=== PATIENT | female | born 1955 | race Caucasian/White ===

== ENCOUNTER 2017-01-27 15:00 | Inpatient (IN) | payer MEDICARE, OTHER ==
--- NOTE | ~2017-01-27 | PN ---
Unit #: [id number] #: [id number] Patient: JENNIFER CONSTANTINO [id number] [facility] [address] [place] [address] [id number] MR#: [id number] NAME: JENNIFER CONSTANTINO ROOM: P254 Age: 61 Sex: F Admission Date: 01/27/2017 : 1955 Attending Physician: Alexis Watson M.D. Admitting Physician: Alexis Watson M.D. Primary Care Physician: Domingo Doctor Not In System [facility] PROGRESS NOTES DATE 02/01/2017 DISCUSSION The patient is complaining of poor sleep and reports that the Benadryl did not effectively address her symptoms and reports that the patient has multiple medication allergies but we will attempt a trial of belsomra 10 mg this evening. Dictated by... Alexis Watson M.D. CB/theron TD: 02/02/2017 07:23 JOB #: [id number] [facility] PROGRESS NOTES Page 1 of 1 X Alexis Watson MD X PROGRESS NOTE
--- NOTE | ~2017-01-27 | PN ---
Unit #: [id number] #: [id number] Patient: JENNIFER CONSTANTINO [id number] [facility] [address] [place] [address] [id number] I MR#: [id number] NAME: JENNIFER CONSTANTINO ROOM: P254 Age: 61 Sex: F Admission Date: 01/27/2017 : 1955 Attending Physician: Alexis Watson M.D. Admitting Physician: Alexis Watson M.D. Primary Care Physician: Domingo Doctor Not In System [facility] PROGRESS NOTES DATE 01/31/2017 DISCUSSION The patient is compliant with medications. She is complaining that she feels as though the trazodone may be causing her to have manic symptoms. I will discontinue this medication as of today and add Benadryl on p.r.n. basis for sleep. Dictated by... Alexis Watson M.D. CB/renaldo TD: 01/31/2017 16:04 JOB #: [id number] [facility] PROGRESS NOTES Page 1 of 1 X Alexis Watson MD PROGRESS NOTE
--- NOTE | ~2017-01-27 | HP ---
Unit #: [id number] #: [id number] Patient: JENNIFER CONSTANTINO [id number] [place] [address] [id number] I MR#: [id number] NAME: JENNIFER CONSTANTINO. ROOM: P254 Age: 61 Sex: F Admission Date: 01/27/2017 : 1955 Attending Physician: Alexis Watson M.D. Admitting Physician: Alexis Watson M.D. Primary Care Physician: Generic Doctor Not In System HISTORY AND PHYSICAL HISTORY OF PRESENT ILLNESS Jennifer is a 61 year old admitted to [address] [place] [address] with depression. She also reports auditory and olfactory hallucinations. She is a poor historian so her history is taken from her chart. PAST MEDICAL HISTORY 1. Hypercholesterolemia 2. History of migraines. 3. GERD. 4. History of kidney stones. PAST SURGICAL HISTORY Cholecystectomy ALLERGIES Penicillin, sulfa, Restoril, perphenazine, lithium, codeine, Depakote, carbamazepine, pseudoephedrine, Macrodantin, Ambien, Risperdal, amitripyline, sertraline, Zyprexa, Lunesta, Geodon. SOCIAL HISTORY She denies cigarettes, alcohol and illicit drug use. REVIEW OF SYSTEMS She does not answer questions appropriately. There are no reports of nausea, vomiting or diarrhea. She has had no cough or increased temperature. CURRENT MEDICATIONS 1. Fanapt 16 mg q.h.s. 2. Neurontin 900 mg q.h.s. 3. Claritin 10 mg q day 4. Tricor 145 mg q day 5. Desyrel 100 mg q.h.s. p.r.n. 6. Milk of Magnesia p.r.n. 7. Maalox p.r.n. 8. Tylenol p.r.n. 9. Lamictal 200 mg q.h.s. 10. Cogentin 1 mg q.h.s. PHYSICAL EXAMINATION Unit #: [id number] #: [id number] Patient: JENNIFER CONSTANTINO GENERAL: Alert, elderly, in no apparent distress. VITAL SIGNS: Blood pressure 138/72, heart rate 80, respirations 16, temperature 98.6. WEIGHT: 160 pounds. HEIGHT: 5'6". SKIN: Warm and dry without rash or lesion. HEENT: Normocephalic. TMs not viewed. Oral and nasal passages clear. Conjunctivae clear. Pupils equal, round and reactive to light and accommodation. Extraocular movements intact. NECK: Supple without lymphadenopathy or thyromegaly. HEART: Regular rate and rhythm without murmur. LUNGS: Clear. ABDOMEN: Soft, nontender. : Not done. EXTREMITIES: No evidence of cyanosis, clubbing or edema. Moves all extremities without focal deficit. NEUROLOGICAL: Unable to complete extended exam. She does move all extremities without focal deficit. 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 IMPRESSION Psychiatric admission RECOMMENDATIONS PSYCHIATRIC: Per psychiatrist. MEDICAL: I see no contraindications to participating in facility's activities. MEDICAL PROGNOSIS Good. MEDICAL CONDITION Stable. Dictated by... Bernadette Walker P.A.-C. for Brett Rodriguez/tona TD: 01/29/2017 00:52 JOB #: [id number] HISTORY AND PHYSICAL Page 1 of 1 X Bernadette Walker X HISTORY AND PHYSICAL
--- NOTE | ~2017-01-27 | PN ---
Unit #: [id number] #: [id number] Patient: JENNIFER CONSTANTINO [id number] [facility] [address] [place] [address] [id number] I MR#: [id number] NAME: JENNIFER CONSTANTINO ROOM: P254 Age: 61 Sex: F Admission Date: 01/27/2017 : 1955 Attending Physician: Alexis Watson M.D. Admitting Physician: Alexis Watson M.D. Primary Care Physician: Generic Doctor Not In System [facility] PROGRESS NOTES DATE 01/29/2017 DISCUSSION The patient states that she was somewhat groggy for 3 hours this morning after awakening with increased dose of Fanapt but understands why the dose had to be increased. She otherwise seems a bit less pressured and labile during today's interview and is active within the therapeutic milieu. She does hint that there is "something important" with what she must deal once discharged from the hospital but does not divulge. Dictated by... Alexis Watson M.D. CB/renaldo TD: 01/29/2017 17:14 JOB #: [id number] [facility] PROGRESS NOTES Page 1 of 1 X Alexis Watson MD X PROGRESS NOTE
--- NOTE | ~2017-01-27 | PN ---
Unit #: [id number] #: [id number] Patient: JENNIFER CONSTANTINO [id number] [facility] [address] [place] [address] [id number] I MR#: [id number] NAME: JENNIFER CONSTANTINO ROOM: P254 Age: 61 Sex: F Admission Date: 01/27/2017 : 1955 Attending Physician: Alexis Watson M.D. Admitting Physician: Alexis Watson M.D. Primary Care Physician: Domingo Doctor Not In System [facility] PROGRESS NOTES DATE 02/04/2017 DISCUSSION The patient is active within the therapeutic milieu. She was seeming calmer. The patient continues to express grave concerns regarding her safety outside the hospital saying that she is afraid of her "impulsivity." I have spoken with the patient regarding realistic expectations of inpatient care, and I will (1) __ that her progress has been significant since her admission to the hospital. She was tolerating medications, and I would like to see the patient leave the hospital by the weekend with followup to take place in the intensive outpatient program. Dictated by... Alexis Watson M.D. CB/reinier TD: 02/04/2017 12:38 JOB #: [id number] [facility] PROGRESS NOTES Page 1 of 1 X Alexis Watson MD X PROGRESS NOTE
--- NOTE | ~2017-01-27 | PA ---
Unit #: [id number] #: [id number] Patient: JENNIFER CONSTANTINO [id number] [place] [address] [id number] I MR#: [id number] NAME: JENNIFER CONSTANTINO. ROOM: P254 Age: 61 Sex: F Admission Date: 01/27/2017 : 1955 Date of Assessment: 01/28/2017 Attending Physician: Alexis Watson M.D. Admitting Physician: Alexis Watson M.D. Primary Care Physician: Generic Doctor Not In System PSYCHIATRIC ASSESSMENT IDENTIFYING INFORMATION The patient is a 61-year-old single white female, admitted to the [address] [place] [address] unit in a mixed phase of bipolar disorder. INFORMANT(S) Patient, patient reliability is good. CHIEF COMPLAINT None given. HISTORY OF PRESENT ILLNESS The patient is a 61-year-old white female, followed by this physician. She has a history of bipolar disorder and is admitted in what appears to be a mixed phase. The patient states that she has been compliant with prescribed medications. She reports that she has recently had issues with dizziness which was thought to be elated to some visual issues. She has been undergoing visual therapy but reports that this has been an extremely stressful to her. She also reports some difficulty at her work place as causes for her increasing depression and sleeplessness. The patient was admitted yesterday voicing positive suicidal ideation, racing thoughts, and severe paranoia. She was last hospitalized at this facility in 2014 under the care of this physician and has been followed since that time. She has maintained fairly good health and has been compliant with prescribed medications. PAST PSYCHIATRIC HISTORY Is as above. MEDICATIONS 1. Fanapt 2. Gabapentin 3. Lamotrigine 4. Benztropine 5. Fenofibrate 6. Fish oil 7. Aspirin 8. Linzess 9. Ne 10. MiraLAX 11. Omeprazole 12. Culturelle 13. Meloxicam 14. Multivitamins Unit #: [id number] #: [id number] Patient: JENNIFER CONSTANTINO ALLERGIES Penicillin, sulfa, amitriptyline, codeine, carbamazepine, lithium, nitrofurantoin, perphenazine, pseudoephedrine, Risperdal, sertraline, topiramate, cephalexin, Depakote, Lunesta, Zyprexa, Restoril, Ambien, Geodon, Macrobid. FAMILY HISTORY Noncontributory. SOCIAL HISTORY The patient lives alone. 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 She reports substance use as noted. She denies use of alcohol, tobacco, or street drugs. MENTAL STATUS EXAM At this time, reveals the patient to be a well-developed, well-nourished white female, appearing her stated age. She is in no apparent physical distress at the time of the examination. She is awake and alert in all spheres. Her mood is dysphoric. Her affect somewhat labile. Speech is pressured but generally relevant and coherent. There are no gross deficits to memory or cognition noted. Intelligence is judged to be in the average range based on fund of knowledge. The patient is cooperative throughout the interview. She is currently endorsing positive suicidal ideation. She denies homicidal ideation. She does report racing thoughts and some increasing paranoia. Her judgment and insight appear to be somewhat impaired. ASSETS Motivation for change. LIABILITIES Lack of resources. DIAGNOSTIC IMPRESSION Bipolar disorder, mixed phase. TREATMENT PLAN The patient remains hospitalized for safety and stabilization. We will increase the patient's Fanapt from 12 to 16 mg nightly in hopes of addressing her symptoms, cautious upward titration will be undertaken as the patient has shown exquisite sensitivity to extrapyramidal symptoms from other second generation antipsychotics. The patient will participate in appropriate arias and milieu activities with an estimated length of stay in the hospital of [id number] days. She looks to be a good candidate for referral to the intensive outpatient program once discharged. ESTIMATED LENGTH OF STAY Estimated length of stay in the hospital seven days. Dictated by... Alexis Watson M.D. Unit #: [id number] #: [id number] Patient: JENNIFER CONSTANTINO CLARENCE/theron TD: 01/28/2017 12:50 JOB #: [id number] PSYCHIATRIC ASSESSMENT Page 1 of 1 X Alexis Watson MD PSYCHIATRIC ASSESSMENT
--- NOTE | ~2017-01-27 | PN ---
Unit #: [id number] #: [id number] Patient: JENNIFER CONSTANTINO [id number] [facility] [address] [place] [address] [id number] I MR#: [id number] NAME: JENNIFER CONSTANTINO ROOM: P254 Age: 61 Sex: F Admission Date: 01/27/2017 : 1955 Attending Physician: Alexis Watson M.D. Admitting Physician: Alexis Watson M.D. Primary Care Physician: Domingo Doctor Not In System [facility] PROGRESS NOTES DATE 02/02/2017 DISCUSSION The patient continues to complain of dysphoric mood but seems brighter. She slept seven hours last night and seems to be tolerating the side effects of Fanapt significantly better. She also seems less paranoid and delusional and appears to be approaching her psychiatric baseline. Discharge could take place within the next couple of days and I will recommend that the patient participate in the intensive outpatient program following her discharge. Dictated by... Aleixs Watson M.D. CB/tona TD: 02/03/2017 01:32 JOB #: [id number] [facility] PROGRESS NOTES Page 1 of 1 X Alexis Watson MD PROGRESS NOTE
--- NOTE | ~2017-01-27 | FU ---
[facility] Nutrition Therapy DATE: 01/30/17 Patient: JENNIFER CONSTANTINO Physician: CJ Address: [address] Room/Bed: [address], Zip: [place] [address] Admit Date: 01/27/17 Date of : [birth year] Height: 5 6 Weight: 159 72.08184 NUTRITION MONITORING/FOLLOW-UP: Reason: Meal request; RD previously assessed 01/28/17 (see note) Assessment: Spoke w/ patient regarding dietary preferences for meal clarification. See recs below. Recommendations: 1. Encouraged patient to look at menu daily and have nursing send food & nutrition message with meal requests in the morning if necessary. Otherwise we will do our best to accomodate the patient with what dietary restrictions she has given us. Patient cannot have the following low fiber/gassy foods due to constipation/GI disturbance: Fried meats Potatoes Gassy vegetables such as cucumber, broccoli, cauliflower and beans dairy bread bananas rice peanut butter The patient CAN have: Non-fried/non-breaded chicken, turkey, tuna, ham, pork, beef or fish Lyn or sausage Eggs Fruit plate (no banana) Salad (no cucumber) Peas, carrots or green beans *Send prune juice daily x 2 in morning Respectfully, Aaliyah Vargas, JESSIKA, LD [facility] Nutrition Therapy DATE: 01/30/17 Patient: JENNIFER CONSTANTINO Physician: CJ Address: [address] Room/Bed: [address], Zip: [place] [address] Admit Date: 01/27/17 Date of : [birth year] Height: 5 6 Weight: 159 72.15499 [facility] cc: client file
--- NOTE | ~2017-01-27 | PN ---
Unit #: [id number] #: [id number] Patient: JENNIFER CONSTANTINO [id number] [facility] [address] [place] [address] [id number] I MR#: [id number] NAME: JENNIFER CONSTANTINO ROOM: P254 Age: 61 Sex: F Admission Date: 01/27/2017 : 1955 Attending Physician: Alexis Watson M.D. Admitting Physician: Alexis Watson M.D. Primary Care Physician: Domingo Doctor Not In System [facility] PROGRESS NOTES DATE 02/03/2017 DISCUSSION The patient is more active within the milieu and seems to be tolerating the medication increase of Fanapt without complaint. She does, however, continue to voice some possible mild paranoid thinking, but this may in fact the function of her baseline. She is beginning to push for discharge and could be ready (1) __ as early as tomorrow. Followup will take place in intensive outpatient program. Dictated by... Alexis Watson M.D. CB/reinier TD: 02/03/2017 12:44 JOB #: [id number] [facility] PROGRESS NOTES Page 1 of 1 X Alexis Watson MD X PROGRESS NOTE
--- NOTE | ~2017-01-27 | PN ---
Unit #: [id number] #: [id number] Patient: JENNIFER CONSTANTINO [id number] [facility] [address] [place] [address] [id number] I MR#: [id number] NAME: JENNIFER CONSTANTINO ROOM: P254 Age: 61 Sex: F Admission Date: 01/27/2017 : 1955 Attending Physician: Alexis Watson M.D. Admitting Physician: Alexis Watson M.D. Primary Care Physician: Domingo Doctor Not In System [facility] PROGRESS NOTES DATE 01/30/2017 DISCUSSION The patient reports that she had some delusional thinking this morning related to her employer. She reports that the sedation caused by the increase of Fanapt has improved somewhat. We continue current treatment. Dictated by... Alexis Watson M.D. CB/reinier TD: 01/30/2017 13:47 JOB #: [id number] [facility] PROGRESS NOTES Page 1 of 1 X Alexis Watson MD PROGRESS NOTE
--- NOTE | ~2017-01-27 | PN ---
Unit #: [id number] #: [id number] Patient: JENNIFER CONSTANTINO [id number] [facility] [address] [place] [address] [id number] I MR#: [id number] NAME: JENNIFER CONSTANTINO ROOM: P254 Age: 61 Sex: F Admission Date: 01/27/2017 : 1955 Attending Physician: Alexis Watson M.D. Admitting Physician: Alexis Watson M.D. Primary Care Physician: Domingo Doctor Not In System [facility] PROGRESS NOTES DATE 02/06/2017 DISCUSSION The patient continues to complain of anxiety but reports some improvement with addition of p.r.n. lorazepam. She did tolerate the increased dose of Fanapt without complaint. We continue current aggressive pharmacotherapy as the patient continues to complain of severe anxiety and racing thoughts, and paranoia also is an ongoing complaint of the patient. Dictated by... Alexis Watson M.D. CB/bzg TD: 02/06/2017 14:41 JOB #: [id number] [facility] PROGRESS NOTES Page 1 of 1 X Alexis Watson MD X PROGRESS NOTE
--- NOTE | ~2017-01-27 | PN ---
Unit #: [id number] #: [id number] Patient: JENNIFER CONSTANTINO [id number] [facility] [address] [place] [address] [id number] I MR#: [id number] NAME: JENNIFER CONSTANTINO ROOM: P256 Age: 61 Sex: F Admission Date: 01/27/2017 : 1955 Attending Physician: Alexis Watson M.D. Admitting Physician: Alexis Watson M.D. Primary Care Physician: Generic Doctor Not In System [facility] PROGRESS NOTES DATE 02/08/2017 DISCUSSION The patient is bright, euthymic and active within the therapeutic milieu. She voices no suicidal or homicidal ideation when seen today but is complaining of some GI upset and diarrhea. She cannot take Imodium secondary to her irritable bowel symptoms but states that she is doing well otherwise. I have instructed her to maintain good (1) , Dictated by... Alexis Watson M.D. CB/tona TD: 02/09/2017 01:52 JOB #: [id number] [facility] PROGRESS NOTES Page 1 of 1 X Alexis Watson MD X PROGRESS NOTE
--- NOTE | ~2017-01-27 | PN ---
Unit #: [id number] #: [id number] Patient: JENNIFER CONSTANTINO [id number] [facility] [address] [place] [address] [id number] I MR#: [id number] NAME: JENNIFER CONSTANTINO ROOM: P254 Age: 61 Sex: F Admission Date: 01/27/2017 : 1955 Attending Physician: Alexis Watson M.D. Admitting Physician: Alexis Watson M.D. Primary Care Physician: Domingo Doctor Not In System [facility] PROGRESS NOTES DATE 02/05/2017 DISCUSSION The patient was more anxious yesterday and appears a bit more elevated and paranoid when seen today. She is agreeable to further upward titration in her Fanapt dose now to 20 mg and I will add p.r.n. lorazepam. Dictated by... Alexis Watson M.D. CB/dallin TD: 02/05/2017 13:17 JOB #: [id number] [facility] PROGRESS NOTES Page 1 of 1 X Alexis Watson MD PROGRESS NOTE
--- NOTE | ~2017-01-27 | DS ---
Unit #: [id number] #: [id number] Patient: JENNIFER CONSTANTINO [id number] [place] [address] [id number] I MR#: [id number] NAME: JENNIFER CONSTANTINO. ROOM: P256 Age: 61 Sex: F Admission Date: 01/27/2017 : 1955 Discharge Date: 02/09/2017 Attending Physician: Alexis Watson M.D. Primary Care Physician: Generic Doctor Not In System DISCHARGE SUMMARY REASON FOR ADMISSION The patient is a 61-year-old white female admitted to the [address] [place] [address] unit in a mixed phase of bipolar disorder. HOSPITAL COURSE The patient was admitted to the [address] [place] [address] unit and placed onto [address] [place] [address] and she was continued on her home medications. Fanapt was gradually titrated to a final dose of 20 mg daily. The patient also complained of severe anxiety and Ativan 0.5 mg q.6 h. p.r.n. anxiety was added. The patient initially presented with symptoms of gwen as well as depressed mood and paranoia. These symptoms did resolve with upward titration of Fanapt. By 02/09/2017 the patient was in much brighter spirits. She appeared to be at or near her psych baseline and was requesting followup in the intensive outpatient program provided by this facility. As per her request, discharge was ordered. DISCHARGE DIAGNOSES 1. Bipolar disorder type 1, most recent episode mixed. 2. Irritable bowel syndrome. 3. Hypercholesterolemia. 4. History of migraine headache. 5. Gastroesophageal reflux disease. 6. History of kidney stones. DISCHARGE MEDICATIONS 1. Ativan 0.5 mg q.6 h. p.r.n. anxiety. 2. Fanapt 20 mg at bedtime for mood stabilization. 3. Benadryl 25 mg at bedtime for extrapyramidal symptoms. 4. Linzess 290 mcg daily for irritable bowel syndrome. 5. MiraLAX 17 g b.i.d. for constipation. 6. TriCor 145 mg q.a.m. for dyslipidemia. 7. Neurontin 900 mg at bedtime for mood stabilization. 8. Lamictal 200 mg at bedtime for mood stabilization. 9. Cogentin 1 mg at bedtime for extrapyramidal symptoms. 10. Mobic 15 mg daily for osteoarthritis. 11. Therapeutic vitamin daily for vitamin supplementation. 12. Florastor 250 mg q.a.m. for bowel health. 13. Protonix 40 mg daily for gastroesophageal reflux disease. 14. Claritin 10 mg daily for environmental allergies. 15. Aspirin 81 mg daily for anticoagulation. 16. Fish oil 2000 mg daily for nutritional supplementation. PROGNOSIS Good. Unit #: [id number] #: [id number] Patient: JENNIFER CONSTANTINO DIET AND ACTIVITY No dietary or physical restrictions placed on the patient at the time of discharge. FOLLOWUP Followup will take place through the auspices of the intensive outpatient program in [place] (1)____ systems. Dictated by... Alexis Watson M.D. CB/jose elias TD: 02/11/2017 09:34 JOB #: [id number] DISCHARGE SUMMARY Page 1 of 1 X Alexis Watson MD X DISCHARGE SUMMARY
--- NOTE | ~2017-01-27 | A ---
[facility] Nutrition Therapy DATE: 01/28/17 Patient: JENNIFER Barajas CONSTANTINO Physician: CJ Address: [address] Room/Bed: [address], Zip: [place] [address] Admit Date: 01/27/17 Date of : [birth year] Height: 5 6 Weight: 159 72.04830 NUTRITIONAL ASSESSMENT: REASON: CONSULT "COLON RELATED SPECIAL DIET REQUIREMENTS" PATIENT ADMITTE DFOR AUDITORY/VISUAL HALLUCINCATIONS, PARANOIA PMH: BIPOLAR D/O, HTN, HYPERCHOLESTEROLEMIA Anthropometrics: HT: 5'6", WT: 160#, BMI: 25.8 Labs: NO LABS AVAILABLE Meds: MVI +MINERALS, FISH OIL, DESYREL, PROTONIX, COGENTIN, NEURONTIN, MIRALAX Assessment: PATIENT IS A 61 Y/O FEMALE ADMITTED FOR A/V HALLUCINATIONS AND PARANOIA. PATIENT IS CURRENTLY ON MEDICAL LEAVE FROM JOB, LIVES ALONE IN AN APARTMENT,AND DENIES SUBSTANCE ABUSE. PER NEEDS ASSESSMENT PATIENT STATED THAT HER APPETITE IS "LESS THAN IT SHOULD BE" WITH A 40# WEIGHT LOSS SINCE 04/2016, AND SHE HAS NOT BEEN SLEEPING (2-5 HOURS/DAY LAST 2 WEEKS). CURRENT PO INTAKES UNAVAILABLE D/T PATIENT RECENTLY ADMITTED. DISCUSSED PATIENT'S DIETARY NEEDS WITH NURSING. NURSING STATED PATIENT HAS "COLON ISSUES" BUT WERE UNABLE TO SPECIFY ANY FUTHER. THIS RD WAS UNABLE TO FIND ANY HISTORY RELATED TO GI CONCERNS OTHER THAN NURSING STAFF REPORTING PATIENT HAS CONSTIPATION. MD HAS NOT REVIEWED PATIENT ATT. PATIENT IS ON A REGULAR DIET WITH NO DAIRY. SHE DID NOT SCORE ANY NUTRITIONAL RISK POINTS. UPON ADMIT PATIENT STATED SHE CANNOT HAVE PEANUT BUTTER, GRAINS, RICE, AND GASSY VEGETABLES; SHE CAN HAV NON-BREADED MEATS, FISH, AND POULTRY, SALAD, BEETS, CARROTS, PEAS, GREEN BEANS, SQUASH, MUSHROOMS, FRUITS (EXCEPT BANANAS), ALMOND MILK, AND EGGS. Dx: NO NUTRITION DX Intervention: REGULAR DIET WITH NO DAIRY, FOLLOW PATIENT'S DIETARY GUIDELINES, MEDS PER MD, PSYCH Monitoring, Evaluation and Goals: 1. ADEQUATE PO INTAKES >50% OF MEALS 2. PREVENT, CORRECT MICRO/MACRO NUTRIENT DEFICIENCIES 3. LABS; MAINTAIN LAB VALUES WNL 4. WEIGHTS; MAINTAIN CURRENT WEIGHT MONITOR: WEIGHTS, LABS, PO/FLUID INTKAES Recommendations: [facility] Nutrition Therapy DATE: 01/28/17 Patient: JENNIFER Barajas CONSTANTINO Physician: CJ Address: [address] [place] [address] [address] Room/Bed: [address]254[address] [place] [address], Zip: [place] [address] Admit Date: 01/27/17 Date of : [birth year] Height: 5 6 Weight: 159 72.47806 1. CONTINUE REGULAR DIET WITH NO DAIRY TOLERATED. PLEASE SEE ABOVE FOR PATIENT'S DIETARY RESTRICTIONS. 2. ENCOURAGE ADEQUATE PO AND FLUID INTAKES 3. OBTAIN NUTRITIONAL LAB VALUES 4. MONITOR WEIGHTS ROUTINELY (EVERY 3-4 DAYS) 5. WILL CONTINUE TO F/U WITH PATIENT'S WEIGHT AND PO INTAKES. RD TO F/U PER PROTOCOL AND PRN R/T PATIENT NOT AT NUTRITIONAL RISK ATT Respectfully, NIGHAT AMIN, RD, LD Food and Nutritional Services [facility] cc: client file
--- NOTE | ~2017-01-27 | FU ---
[facility] Nutrition Therapy DATE: 02/04/17 Patient: JENNIFER CONSTANTINO Physician: CJ Address: [address] Room/Bed: [address], Zip: [place] [id number] Admit Date: 01/27/17 Date of : [birth year] Height: 5 6 Weight: 159 72.53534 NUTRITION MONITORING/FOLLOW-UP: Reason: Nutrition follow-up; originally assessed due to constipation/dietary preferences Admitting Dx: 61 y/o female admitted with auditory hallucinations Anthropometrics: Ht: 66", admission wt: 160 lbs, no new weight, BMI: 25.8 (overweight) Labs: No new labs Meds: Reviewed GI: Hx constipation Skin: No issues Assessment: Chart reviewed, events noted. Patient's diet changed from no dairy to regular on 02/02 and MD order large portion entrees, as the patient usually eats double meat portions and very little side items. See dietary requirements due to constipation in assessment dated 01/30/17. Dietary requirements are known to [facility] staff, she has had no further issues/complaints and is still receiving prune juice BID to help with constipation. Although she has had off and on headaches and little sleep, she is tolerating treatment well and per MD will likely be discharged today or tomorrow. RD previously verbally educated on constipation MNT including gradually increasing fiber-rich foods and fluid intake- patient knowledgeable about this however some of her dietary preferences are questionable. She has still been avoiding dairy products. No updated weight available since admission, patient has had a consistently good appetite with good PO intake. See recs below. Dx: No nutrition diagnosis per original assessment dated 01/28/17 Intervention: None at this time, continue current dietary regimen Monitoring, Evaluation and Goals: 1. PO intake > 50% of meals - MET 2. Prevent/correct micro/macro nutrient deficiencies - IN PROGRESS (pt on MVI, however still avoids certain foods/food groups) 3. Labs WNL - NOT ADDRESSED (no new labs available) 4. Maintain weight status - NOT ADDRESSED (no updated weight) Monitor: Per consult [facility] Nutrition Therapy DATE: 02/04/17 Patient: JENNIFER CONSTANTINO Physician: CJ Address: [address] Room/Bed: P254-2 [facility], Zip: [place] [address] Admit Date: 01/27/17 Date of : [birth year] Height: 5 6 Weight: 159 72.12437 Recommendations: 1. Continue current dietary regimen: regular diet + large entree @ lunch/dinner + prune juice BID. *Please see RD noted dated 01/30/17 for detailed food preferences 2. Continue daily vitamins/fish oil. 3. Please obtain update weight. 4. Please consult RD or call [phone] with any further nutritional needs. Status: Not at nutritional risk Respectfully, Aaliyah Vargas, JESSIKA, LD Food and Nutritional Services [facility] cc: client file
[~2017-01-27 15:00] MED LIST: ABILIFY; ABILIFY PO; ACETAMINOPHEN; ANUSOL; ATIVAN PO; BENICAR; CIPRO PO; COGENTIN PO; DIOVAN PO; ENULOSE PO; FISH OIL 1,0001 CAP; LAMICTAL PO; LIPITOR; MIRALAX255 GM; NUVARING; NUVARING V1 VAG.RING VG; PHENERGAN PO; POLYETHYLENE G527 GM; PROTONIX PO; SEROQUEL; SEROQUEL PO; TRICOR; TRICOR PO; VICODIN 5/500 T1 TAB PO; VIT B; ZOCOR PO
[2017-01-28 09:48] LABS: BASOPHIL% 0.4 % (0-2.5); EOSINOPHIL% 0.5 % (0.0-7.0); HEMATOCRIT 40.6 % (35.0-45.0); HEMOGLOBIN 13.4 gm/dL (12.0-16.0); LYMPHOCYTE# 2.5 X10e3 (1.0-3.5); MEAN CELL VOLUME 95.2 FL (83-96); MEAN CORPUSCULAR HEMOGLOBIN 31.3 PG (28-34); MEAN CORPUSCULAR HGB CONC 32.9 g/dL (30-36); MEAN PLATELET VOLUME 9.2 FL (6.5-11.5); MONOCYTE# 0.6 X10e3 (0-1.0); MONOCYTE% 8.1 % (3.0-12.0); NEUTROPHIL# 3.7 X10e3 (1.5-7.1); PLATELET COUNT 151 X10e3 (140-420); RED BLOOD COUNT 4.26 X10e (3.90-5.30); RED CELL DISTRIBUTION WIDTH 13.3 % (11.0-15.5); WHITE BLOOD COUNT 6.8 X10e3 (4.0-10.5)
[2017-01-28 09:56] LABS: URINE APPEARANCE CLEAR; URINE BILIRUBIN NEG (NEG); URINE BLOOD NEG (NEG); URINE COLOR YELLOW; URINE GLUCOSE NEG (NEG); URINE KETONE NEG (NEG); URINE LEUKOCYTE ESTERASE 2+ (NEG); URINE NITRATE NEG (NEG); URINE PROTEIN NEG (NEG); URINE SPECIFIC GRAVITY 1.008 (1.003-1.035); URINE UROBILINOGEN 0.2 MG/DL (NEG)
[2017-01-28 09:59] LABS: DIFF IND NO
[2017-01-28 10:04] LABS: ALBUMIN SERUM 4.1 g/dL (3.5-5.0); BILIRUBIN,TOTAL 0.5 mg/dL (0.2-2.0); CALCIUM SERUM 9.7 mg/dL (8.4-10.2); GLOM FILT RATE Estimated 61.2 mL/min (>60); POTASSIUM 4.5 mmol/L (3.5-5.1); PROTEIN TOTAL SERUM 7.2 g/dL (6.0-8.3)
[2017-01-28 10:59] LABS: AMPHETAMINE NEG (NEG); BARBITURATES NEG (NEG); BENZODIAZEPINES NEG (NEG); COCAINE NEG (NEG); MARIJUANA NEG (NEG); OPIATES NEG (NEG); TRICYCLIC ANTIDEPRESSANTS NEG (NEG); U METHADONE NEG (NEG)
== END 2017-02-09 15:30 | disposition home or self-care (01) | DRG 885 ==
LOC: P2L 18:02
PROVIDERS: Specialist
DX: F31.60 Bipolar disorder, current episode mixed, unspecified (principal); F41.9 Anxiety disorder, unspecified; E78.00 Pure hypercholesterolemia, unspecified; K21.9 Gastro-esophageal reflux disease without esophagitis; Z87.442 Personal history of urinary calculi; Z88.0 Allergy status to penicillin; Z88.5 Allergy status to narcotic agent; Z88.8 Allergy status to other drugs, medicaments and biological substances; Z88.2 Allergy status to sulfonamides; K58.9 Irritable bowel syndrome, unspecified
CPT/HCPCS: 80053; 80307; 81003; 85025

== ENCOUNTER 2017-02-18 19:11 | Inpatient (IN) | payer MEDICARE, OTHER ==
--- NOTE | ~2017-02-18 | DS ---
Unit #: [id number] #: [id number] Patient: JENNIFER CONSTANTINO [id number] [place] [address] [id number] I MR#: [id number] NAME: JENNIFER CONSTANTINO ROOM: [facility] Age: 61 Sex: F Admission Date: 02/18/2017 : 1955 Discharge Date: 02/23/2017 Attending Physician: Alexis Watson M.D. Primary Care Physician: Primary Care Physician No DISCHARGE SUMMARY REASON FOR ADMISSION The patient is a 61-year-old white female, admitted to the [address] [place] [address] unit after experiencing increasing psychosis and paranoia outside of the hospital. HOSPITAL COURSE The patient was admitted in transfer from the intensive outpatient program. Fanapt was titrated to a final dose of 24 mg at bedtime. The patient initially had some issues with lightheadedness with this increased dose, but these resolved rapidly. She reported improved "clear headedness" and reduced psychotic thinking on 02/21/2017. By 02/23/2017, the patient appeared to be at or near her psychiatric baseline and requested discharge. She was in agreement with plan for followup in the intensive outpatient program. FINAL DIAGNOSES Bipolar disorder, most recent episode manic; irritable bowel syndrome; gastroesophageal reflux disease. DISPOSITION ON DISCHARGE The patient is discharged on the following medications; MiraLAX 17 g b.i.d. for constipation, fenofibrate 134 mg daily for dyslipidemia, Neurontin 900 mg at bedtime for sleep, Lamictal 200 mg at bedtime for mood stabilization, Cogentin 1 mg at bedtime for extrapyramidal symptoms, Mobic 15 mg once daily for osteoarthritis, multivitamin 1 daily for nutritional supplementation, Florastor 250 mg daily for bowel health, Protonix 40 mg daily for GERD, Claritin 10 mg once daily for environmental allergies, aspirin 81 mg once daily for anticoagulation, fish oil 2000 mg daily for nutritional supplementation, Ativan 0.5 mg q.6 hours p.r.n. anxiety, Benadryl 25 mg at bedtime for extrapyramidal symptoms, TriCor 150 mg once daily for dyslipidemia, Linzess 290 mcg once daily for IBS, Fanapt 24 mg daily for mood stabilization and psychosis. DISCHARGE INSTRUCTIONS No dietary or physical restrictions were placed on the patient at the time of discharge. FOLLOWUP She will follow up in the intensive outpatient program provided by this facility. PROGNOSIS Her prognosis is considered good. Unit #: [id number] #: [id number] Patient: JENNIFER CONSTANTINO Dictated by..Aroldo Watson M.D. CB/monica TD: 02/24/2017 02:57 JOB #: [id number] DISCHARGE SUMMARY Page 1 of 1 X Alexis Watson MD X DISCHARGE SUMMARY
--- NOTE | ~2017-02-18 | PN ---
Unit #: [id number] #: [id number] Patient: JENNIFER CONSTANTINO [id number] [facility] [address] [place] [address] [id number] I MR#: [id number] NAME: JENNIFER CONSTANTINO ROOM: 64 Age: 61 Sex: F Admission Date: 02/18/2017 : 1955 Attending Physician: Alexis Watson M.D. Admitting Physician: Alexis Watson M.D. Primary Care Physician: Primary Care Physician Dayana GUTIERREZ PROGRESS NOTES DATE 02/22/2017 DISCUSSION The patient is in brighter spirits today. She said she "has a clear mind for the first time in eight weeks" as she approaches her psychiatric baseline we will consider a.m. discharge. Dictated by... Alexis Watson M.D. CB/tona TD: 02/23/2017 00:27 JOB #: [id number] [facility] PROGRESS NOTES Page 1 of 1 X Alexis Watson MD X PROGRESS NOTE
--- NOTE | ~2017-02-18 | PN ---
Unit #: [id number] #: [id number] Patient: JENNIFER CONSTANTINO [id number] [facility] [address] [place] [address] [id number] I MR#: [id number] NAME: JENNIFER CONSTANTINO ROOM: 64 Age: 61 Sex: F Admission Date: 02/18/2017 : 1955 Attending Physician: Alexis Watson M.D. Admitting Physician: Alexis Watson M.D. Primary Care Physician: Primary Care Physician Dayana GUTIERREZ PROGRESS NOTES DATE 02/20/2017 DISCUSSION The patient continues to complain of dysphoric mood, lack of energy, and ongoing paranoia. She did have some orthostatic hypertension this morning, possibly related to the increased dose of Fanapt, but we will continue her current dose at this point. Dictated by... Alexis Watson M.D. CB/bzg TD: 02/20/2017 13:57 JOB #: [id number] [facility] PROGRESS NOTES Page 1 of 1 X Alexis Watson MD PROGRESS NOTE
--- NOTE | ~2017-02-18 | A ---
[facility] Nutrition Therapy DATE: 02/20/17 Patient: JENNIFER Barajas CONSTANTINO Physician: CJ Address: [address] Room/Bed: [address], Zip: [place] [phone] Admit Date: 02/18/17 Date of : [birth year] Height: 5 6.5 Weight: 159 72.01300 NUTRITIONAL ASSESSMENT: REASON: CONSULT "IBS, CHRONIC CONSTIPATION, SPECIAL FOOD NEEDS" PATIENT ADMITTED FOR PSYCHOSIS AND DEPRESSION PMH: BIPOLAR D/O, IBS, HYPERCHOLESTEROLEMIA, HX MIGRAINE HEADACHES, GERD Anthropometrics: HT: 66". WT: 160#, BMI: 25.8 Labs: NO NEW LABS - NUTRITION LABS FROM 01/28/17 WERE WNL Meds: FISH OIL, MVI, COGENTIN, NEURONTIN Assessment: PATIENT IS A 61 Y/O FEMALE ADMITTED FOR DEPRESSION AND PSYCHOSIS. PATIENT IS CURRENTLY ON A LEAVE OF ABSENCE FROM WORK, LIVES ALONE, AND DENIES CURRENT SUBSTANCE ABUSE. PATIENT WAS RECENTLY D/C'D FROM THIS FACILITY ON 02/09/17, STARTED IOP, AND WAS UPGRADED TO INPATIENT ON 02/18/17. RD HAS ASSESSED AND FOLLOWED UP WITH PATIENT 3X IN LAST 3 WEEKS D/T PATIENT'S CONSTIPATION AND DIETARY PREFERENCES. PATIENT USUALLY EATS DOUBLE MEAT PORTIONS AND VERY LITTLE SIDE ITEMS, AND DRINKS PRUNE JUICE BID. RD PREVIOUSLY EDUCATED PATIENT ON CONSTIPATION MNT. THE PATIENT WAS KNOWLEDGEABLE ABOUT THIS SUBJECT, HOWEVER SOME OF HER DIETARY PREFERENCES ARE QUESTIONABLE. PLEASE SEE DIETARY REQUIREMENT BELOW. DIETARY REQUIREMENTS KNOWN TO [facility] STAFF. PER NEEDS ASSESSMENT PATIENT STATED A GOOD APPETITE WITH NO RECENT WEIGHT CHANGES. NURSING STAFF REPORTS CONSISTENTLY GOOD PO INTAKES. PATIENT DID NOT SCORE ANY NUTRITIONAL RISK POINTS. THERE ARE NO SKIN OR GI ISSUES NOTED ATT. PATIENT IS ON A REGULAR DIET WITH LARGE PORTION ENTREES AND RECEIVES PRUNE JUICE BID. Dx: NO NUTRITION DX Intervention: CONTINUE DIETARY REGIMEN, MEDS PER MD, PSYCH Monitoring, Evaluation and Goals: 1. ADEQUATE PO INTAKES >50% OF MEALS 2. PREVENT, CORRECT MICRO/MACRO NUTRIENT INTAKES MONITOR: WEIGHTS, LABS, PO/FLUID INTAKES Recommendations: 1. CONTINUE REGULAR DIET WITH LARGE PORTION ENTREES AND PRUNE JUICE BID. PATIENT CANNOT HAVE THE FOLLOWING FOODS D/T CONSTIPATION AND GI UPSET: [facility] Nutrition Therapy DATE: 02/20/17 Patient: JENNIFER Barajas DOUGIE Physician: CJ Address: [address] Room/Bed: [address], Zip: [place] [address] Admit Date: 02/18/17 Date of : [birth year] Height: 5 6.5 Weight: 159 72.41342 -BREADED MEATS, POTATOES, GASSY VEGETABLES (BROCCOLI, CUCMBER, CAULIFLOWER, BEANS), DAIRY, BREAD, BANANA, RICE, PEANUT BUTTER PATIENT CAN HAVE: -NON-FRIED/BREADED CHICKEN, TURKEY, TUNA, HAM, PORK, BEEF, FISH, HOYOS, SAUSAGE, EGGS, FRUIT PLATE (NO BANANA), SALAD (NO CUCUMBER), PEAS, CARROTS, GREEN BEANS, PRUNE JUICE 2. CONTINUE DAILY VITAMINS, FISH OIL 3. OBTAIN WEIGHTS ROUTINELY (EVERY 3-4 DAYS) 4. PLEASE CONSULT RD OR CALL [phone] WITH ANY FURTHER NUTRITIONAL NEEDS. RD TO F/U PER PROTOCOL AND PRN R/T PATIENT NOT AT NUTRITIONAL RISK ATT Respectfully, NIGHAT AMIN, RD, LD Food and Nutritional Services [facility] cc: client file
--- NOTE | ~2017-02-18 | HP ---
Unit #: [id number] #: [id number] Patient: JENNIFER CONSTANTINO [id number] [place] [address] [id number] I MR#: [id number] NAME: JENNIFER CONSTANTINO ROOM: P264 Age: 61 Sex: F Admission Date: 02/18/2017 : 1955 Attending Physician: Alexis Watson M.D. Admitting Physician: Alexis Watson M.D. Primary Care Physician: Primary Care Physician No HISTORY AND PHYSICAL Jennifer is a 61 year old admitted to [address] [place] [address] with depression. She has had other admissions to this facility. Patient was seen and H and P dated 01/28/17 was reviewed. This is current. No changes. Please see H and P dated 01/28/17. Dictated by... Bernadette Walker P.A.-C. for Brett Rodriguez/renaldo TD: 02/19/2017 17:43 JOB #: [id number] HISTORY AND PHYSICAL Page 1 of 1 X Bernadette Walker HISTORY AND PHYSICAL
--- NOTE | ~2017-02-18 | PN ---
Unit #: [id number] #: [id number] Patient: JENNIFER CONSTANTINO [id number] [facility] [address] [place] [address] [id number] I MR#: [id number] NAME: JENNIFER CONSTANTINO ROOM: P264 Age: 61 Sex: F Admission Date: 02/18/2017 : 1955 Attending Physician: Alexis Watson M.D. Admitting Physician: Alexis Watson M.D. Primary Care Physician: Primary Care Physician Dayana GUTIERREZ PROGRESS NOTES DATE 02/21/2017 DISCUSSION The patient continues to complain of auditory hallucinations and some paranoia but states that she is feeling "a little better." She slept well and is tolerating the increased Fanapt better today. Dictated by... Alexis Watson M.D. CB/tona TD: 02/22/2017 23:49 JOB #: [id number] [facility] PROGRESS NOTES Page 1 of 1 X Alexis Watson MD PROGRESS NOTE
--- NOTE | ~2017-02-18 | TN ---
Unit #: [id number] #: [id number] Patient: JENNIFER CONSTANTINO [id number] [place] [address] [id number] I MR#: [id number] NAME: JENNIFER CONSTANTINO ROOM: 64 Age: 61 Sex: F Admission Date: 02/18/2017 : 1955 Discharge Date: 02/23/2017 Attending Physician: Alexis Watson M.D. Primary Care Physician: Primary Care Physician No LOC TRANSFER NOTE DATE OF SERVICE: 02/24/2017 The patient will be transferred from the inpatient program to the intensive outpatient program on 02/24/2017. ORIGINAL REASON FOR ADMISSION TO THE HOSPITAL The patient is a 61-year-old white female, admitted to the [address] [place] [address] unit with increasing paranoia related to a manic episode of bipolar disorder. DISCHARGE MEDICATIONS Please refer to the list for the entire list of medications. The patient's psychotropic medications include Neurontin 900 mg at bedtime for sleep, Lamictal 200 mg at bedtime for mood stabilization, Fanapt 24 mg daily for mood stabilization, Ativan 0.5 mg q.6 hours p.r.n. anxiety, and Benadryl 25 mg at bedtime for extrapyramidal symptoms. RESPONSE TO TREATMENT THUS FAR The patient's symptoms have responded well to upper titration of Fanapt. REASON FOR TRANSFER TO ANOTHER LEVEL OF CARE The patient is no longer in need of inpatient level of care. CURRENT SYMPTOMATOLOGY The patient reports reduced paranoia and anxiety and is sleeping well with her current medications. MENTAL STATUS EXAMINATION At this time reveals the patient to be a well-developed, well-nourished white female, appearing her stated age. She is in no apparent physical distress at the time of examination. She is awake and alert in all spheres. Her mood is euthymic. Her affect is congruent. Speech is generally well coherent. There are no gross deficits in memory or cognition noted. General intelligence is judged to be in the average range based on fund of knowledge. The patient is cooperative throughout the interview. She denies current suicidal or homicidal ideation or psychotic features. Her judgment and insight appear to be intact. DISCHARGE DIAGNOSES Bipolar disorder, most recent episode manic; irritable bowel syndrome; gastroesophageal reflux disease. RECOMMENDATIONS AND EXPECTATIONS The patient will continue compliance with medication and we are hoping to Unit #: [id number] #: [id number] Patient: JENNIFER CONSTANTINO see ongoing stability of mood. FOLLOWUP The patient will follow up through the auspices of [facility] following her discharge. Dictated by... Brett Harris TD: 02/25/2017 02:52 JOB #: [id number] LOC TRANSFER NOTE Page 1 of 1 X Alexis Watson MD X LOC TRANSFER NOTE
[2017-02-19 12:26] LABS: URINE APPEARANCE CLEAR; URINE BILIRUBIN NEG (NEG); URINE BLOOD NEG (NEG); URINE COLOR YELLOW; URINE GLUCOSE NEG (NEG); URINE KETONE NEG (NEG); URINE LEUKOCYTE ESTERASE 3+ (NEG); URINE NITRATE NEG (NEG); URINE PH 7.5 (5-8); URINE PROTEIN NEG (NEG); URINE SPECIFIC GRAVITY 1.012 (1.003-1.035); URINE UROBILINOGEN 0.2 MG/DL (NEG)
[2017-02-19 12:31] LABS: URBCS1 AUWI 0-2 /[HPF] (0-2); URINE BACTERIA AUWI NEG (NEGATIVE); URINE SQUAMOUS EPITHELIAL CELL FEW /[HPF]
[2017-02-19 12:53] LABS: AMPHETAMINE NEG (NEG); BARBITURATES NEG (NEG); BENZODIAZEPINES NEG (NEG); COCAINE NEG (NEG); MARIJUANA NEG (NEG); OPIATES NEG (NEG); TRICYCLIC ANTIDEPRESSANTS NEG (NEG); U METHADONE NEG (NEG)
[2017-02-20 09:44] LABS: BASOPHIL% 0.6 % (0-2.5); EOSINOPHIL# 0.1 X10e3 (0-0.7); EOSINOPHIL% 1.5 % (0.0-7.0); HEMATOCRIT 36.5 % (35.0-45.0); HEMOGLOBIN 12.1 gm/dL (12.0-16.0); LYMPHOCYTE# 2.5 X10e3 (1.0-3.5); LYMPHOCYTE% 42.3 % (17.0-45.0); MEAN CORPUSCULAR HEMOGLOBIN 31.8 PG (28-34); MEAN CORPUSCULAR HGB CONC 33.2 g/dL (30-36); MEAN PLATELET VOLUME 8.9 FL (6.5-11.5); MONOCYTE# 0.6 X10e3 (0-1.0); MONOCYTE% 10.7 % (3.0-12.0); NEUTROPHIL# 2.7 X10e3 (1.5-7.1); NEUTROPHIL% 44.9 % (40-75); PLATELET COUNT 156 X10e3 (140-420); RED CELL DISTRIBUTION WIDTH 13.6 % (11.0-15.5); WHITE BLOOD COUNT 5.9 X10e3 (4.0-10.5)
[2017-02-20 09:56] LABS: DIFF IND NO
[2017-02-20 10:17] LABS: ALBUMIN SERUM 3.5 g/dL (3.5-5.0); BILIRUBIN,TOTAL 0.8 mg/dL (0.2-2.0); CALCIUM SERUM 9.3 mg/dL (8.4-10.2); GLOM FILT RATE Estimated 61.2 mL/min (>60); POTASSIUM 4.7 mmol/L (3.5-5.1); PROTEIN TOTAL SERUM 6.2 g/dL (6.0-8.3)
== END 2017-02-23 15:38 | disposition home or self-care (01) | DRG 885 ==
LOC: P2L 21:01
PROVIDERS: Specialist
DX: F31.60 Bipolar disorder, current episode mixed, unspecified (principal); I95.2 Hypotension due to drugs; F31.10 Bipolar disorder, current episode manic without psychotic features, unspecified; T43.505A Adverse effect of unspecified antipsychotics and neuroleptics, initial encounter; Y92.230 Patient room in hospital as the place of occurrence of the external cause; K58.9 Irritable bowel syndrome, unspecified; K21.9 Gastro-esophageal reflux disease without esophagitis
CPT/HCPCS: 80053; 80307; 81003; 85025; 90853